=== PATIENT | male | born 1945 | race Caucasian/White ===

== ENCOUNTER 2023-01-02 11:23 | Emergency (ER) | payer SELFPAY ==
[~2023-01-02] VITALS: Ht 172.7 cm; Wt 76.0 kg
[2023-01-02] MEDS ORDERED: TETANUS, DIPHTHERIA, PERTUSSIS VAC/PF 0.5ML (>10YR OLD) IM ONE ×2 (11:45→13:15)
[2023-01-02 11:52] VITALS: O2SAT 100
[2023-01-02] MEDS ORDERED: KETOROLAC 30MG/ML VIAL IM ONE (13:00)
[2023-01-02] MEDS ORDERED: BACITRACIN ZINC OINT UDPKT TOP ONE (13:00)
[2023-01-02] MEDS ORDERED: LIDOCAINE HCL/PF 1% 10 MG/ML 5ML VIAL INFIL ONE (13:00)
[2023-01-02] MEDS ORDERED: IBUP-2029 MT (14:20)
[2023-01-02 14:46] VITALS: BP 150/82; PULSE 68; RESP 19; TEMP 98.1
== END 2023-01-02 14:48 | disposition home or self-care (01) ==
LOC: ER 13:25
DX: S01.111A Laceration without foreign body of right eyelid and periocular area, initial encounter (principal); S06.89AA Other specified intracranial injury with loss of consciousness status unknown, initial encounter; Z98.890 Other specified postprocedural states; W18.39XA Other fall on same level, initial encounter; Y93.89 Activity, other specified; Y92.89 Other specified places as the place of occurrence of the external cause; Y99.8 Other external cause status
CPT/HCPCS: 70450; 12013; 96372; 99285; J1885; J3490; Z7610 ×2

== ENCOUNTER 2024-09-24 18:19 | Emergency (ER) | payer MEDICARE ==
[~2024-09-24] VITALS: Ht 172.7 cm; Wt 87.0 kg
[~2024-09-24 18:19] MED LIST: IBUP-2029 MT
[2024-09-24 18:38] VITALS: TEMP 36.9; O2SAT 96
[2024-09-24 19:04] LABS: BASOPHILS % 0.6 % (0.0-2.0); EOSINOPHILS % 4.1 % (0.0-5.0); HEMATOCRIT. 42.1 % (42.0-52.0); HEMOGLOBIN. 14.4 g/dL (14.0-18.0); LYMPHOCYTES % 25.3 % (20.0-50.0); MEAN PLATELET VOLUME 7.0 fl (7.4-10.4); MONOCYTES % 10.4 % (2.0-8.0); NEUTROPHILS % 59.6 % (40.0-76.0); PLATELET 206 x1000/uL (130-400); RED BLOOD CELL COUNT 4.95 mill/uL (4.7-6.1); RED CELL DISTRIBUTION WIDTH 14.5 % (11.6-14.6)
[2024-09-24 19:20] LABS: CREATININE 1.0 mg/dL (0.6-1.3); UREA NITROGEN BLOOD 17 mg/dL (9-23)
[2024-09-24 19:22] LABS: ASPARTATE AMINOTRANSFERASE 13 IU/L (<34); BILIRUBIN DIRECT 0.2 mg/dL (<=3.0); TROPONIN I HIGH SENSITIVITY 4 ng/L (3.0-53)
[2024-09-24 19:23] LABS: BILIRUBIN TOTAL 1.0 mg/dL (0.1-1.0); PROTEIN TOTAL 7.2 g/dL (6.0-8.3)
[2024-09-24 20:58] LABS: CLARITY URINE CLEAR (CLEAR); COLOR URINE YELLOW (YELLOW); GLUCOSE URINE NEGATIVE (NEGATIVE); KETONES URINE NEGATIVE (NEGATIVE); LEUKOCYTE ESTERASE URINE NEGATIVE (NEGATIVE); NITRITE URINE NEGATIVE (NEGATIVE); OCCULT BLOOD URINE NEGATIVE (NEGATIVE); PH URINE 6.5 (4.5-8.0); PROTEIN URINE NEGATIVE (NEGATIVE); SPECIFIC GRAVITY URINE 1.004 (1.005-1.030); UROBILINOGEN URINE 0.2 E.U./dL (0.2-1.0)
[2024-09-24 21:08] LABS: TROPONIN I HIGH SENSITIVITY < 4 ng/L (3.0-53)
[2024-09-24] MEDS ORDERED: AMOX1TAB16 MT (21:22)
[2024-09-24] MEDS ORDERED: AZIT250T12 MT (21:22)
[2024-09-24] MEDS: LIDOCAINE HCL 1% 20ML VIAL INFIL ONE (21:46)
[2024-09-24] MEDS: CEFTRIAXONE SODIUM 1G VIAL IM ONE (21:46)
[2024-09-24 21:47] VITALS: BP 159/78; PULSE 65; RESP 14; O2SAT 99
== END 2024-09-24 21:53 | disposition home or self-care (01) ==
LOC: ER 18:19
DX: J18.9 Pneumonia, unspecified organism (principal); R55 Syncope and collapse; R06.02 Shortness of breath; Z98.890 Other specified postprocedural states; Z79.899 Other long term (current) drug therapy
CPT/HCPCS: 99285; 71045; 80076; 80048; 81003; 83880; 85025; 84484; 36415; 93005; 96372; J0696; J2003